=== PATIENT | female | born 1960 | race Caucasian/White ===

== ENCOUNTER 2017-02-22 02:31 | Inpatient (IN) ==
[2017-02-22] MEDS ORDERED: SODIUM CHLORIDE 0.9% 1,000 ML IV STA (04:07)
[2017-02-22] MEDS ORDERED: ALBUTEROL/IPRATROPIUM 3 ML NEB RESP TX STA (04:08)
[2017-02-22 04:22] LABS: Basophils % 0.3 % (0.0-0.8); Eosinophils # 0.1 10*3/uL (0.0-0.87); Eosinophils % 0.7 % (0.00-10.9); Hematocrit 44.5 VOL% (35.7-47.0); Hemoglobin 14.5 GM/DL (12.0-16.0); Immature Granulocytes % 0.3 %; Immature Granulocytes Absolute 0.03 #; Lymphocytes # 2.6 10*3/uL (1.4-4.0); Lymphocytes % 24.2 % (21.3-54.2); Mean Corpuscular HGB Conc 32.6 GM/DL (32-36); Mean Corpuscular Hemoglobin 31 PG (27-34); Mean Corpuscular Volume 95.1 FL (87-102); Mean Platelet Volume 10.8 FL (9.6-12.0); Monocytes # 0.7 10*3/uL (0.11-0.8); Monocytes % 6.7 % (1.7-12.7); Neutrophils # 7.3 10*3/uL (1.4-7.4); Neutrophils % 67.8 % (38.7-73.9); Platelet Count 204 T/CUMM (130-400); Red Blood Count 4.68 MC/CUMM (3.8-5.5); Red Cell Distribution Width 15.2 % (9.3-17.3); White Blood Count 10.8 T/CUMM (4-12)
[2017-02-22 04:30] LABS: PT Patient Result 10.9 SECS; Partial Thromboplastin Time 29.4 SECS (0-40)
[2017-02-22 04:43] LABS: Albumin 2.8 G/DL (3.4-5.0); Bilirubin,Total 0.5 MG/DL (0.2-1.0); Calcium 7.8 MG/DL (8.5-10.1); Osmolality,Calculated 268.5 MOS/KG (273-304); Potassium 3.8 MMOL/L (3.5-5.1)
[2017-02-22] MEDS ORDERED: NOREPINEPHRINE 4 MG/4 ML VIAL IV ONE ×2 (04:57→05:53)
[2017-02-22] MEDS: NOREPINEPHRINE 8 MG in SODIUM CHLORIDE 0.9% 242 ML IV SCH (05:15)
[2017-02-22] MEDS: SODIUM CHLORIDE 0.9% 1,000 ML IV SCH (08:00)
[2017-02-22] MEDS ORDERED: ONDANSETRON 4 MG/2 ML VIAL IV PRN (08:15)
[2017-02-22] MEDS ORDERED: MAGNESIUM SULF RIDER 4 GM in PREMIX 1 EACH IV PRN (08:15)
[2017-02-22] MEDS ORDERED: NICOTINE 21 MG/24 HR PATCH TRANSDERM PRN (08:15)
[2017-02-22] MEDS ORDERED: ALBUTEROL 2.5 MG/3 ML NEB RESP TX PRN (08:15)
[2017-02-22] MEDS ORDERED: ACETAMINOPHEN 325 MG TABLET PO PRN (08:15)
[2017-02-22] MEDS ORDERED: MORPHINE 2 MG/1 ML SYRINGE IV PRN (08:15)
[2017-02-22 08:58] LABS: Lactic Acid 1.1 MMOL/L (0.4-2.0)
[2017-02-22] MEDS ORDERED: CALCIUM GLUCONATE 1,000 MG in SODIUM CHLORIDE 0.9% 100 ML IV ONE (09:00)
[2017-02-22] MEDS ORDERED: PANTOPRAZOLE 40 MG VIAL IV SCH (09:00)
[2017-02-22 09:13] LABS: Magnesium 1.4 MG/DL (1.8-2.4); Risk Ratio 6.14
[2017-02-22 10:03] LABS: Allen Test Positive
[2017-02-22 10:04] LABS: ABG Base Excess 1.4 MMOL/L (-2.5-2.5); ABG HCO3 25.3 MMOL/L (20-26); ABG Oxygen Saturation 86.6 % (95-100); ABG PCO2 56.4 MM HG (35-48); ABG PH 7.319 (7.35-7.45); ABG PO2 57.4 MM HG (80-95); ABG TCO2 25.4 MMOL/L (23-27)
[2017-02-22] MEDS: DOCUSATE SODIUM 100 MG CAPSULE PO SCH ×2 (10:30→21:21)
[2017-02-22] MEDS: MAGNESIUM SULF RIDER 2 GM in PREMIX 1 EACH IV PRN ×2 (10:32→12:35)
[2017-02-22 16:46] LABS: Apearance,Urine Slightly Hazy (Clear); Bacteria,Urine Many /HPF (Few); Bilirubin,Urine Negative (Negative); Blood, Urine Small mg/dL (Negative); Glucose,Urine (UA) Negative (Negative); Ketones,Urine Negative (Negative); Mucus,Urine Occasional /LPF (Occasional); Nitrite,Urine Negative (Negative); Protein,Urine Negative; RBC,Urine 1 /HPF (0-4); Squamous Epithelial Cell,Urine Occasional /HPF (0-10); Urine Color Yellow (Yellow); Urine Specific Gravity 1.004 (1.001-1.035); Urine Urobilinogen < 2.0 EU/DL (0.2-1.0); WBC,Urine 3 /HPF (0-6)
[2017-02-22] MEDS: ATORVASTATIN 40 MG TABLET PO SCH (21:21)
[2017-02-23] MEDS: SODIUM CHLORIDE 0.9% 1,000 ML IV SCH (03:50)
[2017-02-23] MEDS ORDERED: ENOXAPARIN 100 MG/ML SYRINGE SUBCUT SCH (04:00)
[2017-02-23 05:00] LABS: Basophils % 0.4 % (0.0-0.8); Eosinophils # 0.1 10*3/uL (0.0-0.87); Eosinophils % 2.5 % (0.00-10.9); Hematocrit 43.7 VOL% (35.7-47.0); Hemoglobin 13.9 GM/DL (12.0-16.0); Immature Granulocytes % 0.5 %; Immature Granulocytes Absolute 0.03 #; Lymphocytes # 1.7 10*3/uL (1.4-4.0); Lymphocytes % 29.6 % (21.3-54.2); Mean Corpuscular HGB Conc 31.8 GM/DL (32-36); Mean Corpuscular Hemoglobin 31 PG (27-34); Mean Platelet Volume 11.5 FL (9.6-12.0); Monocytes # 0.5 10*3/uL (0.11-0.8); Monocytes % 8.4 % (1.7-12.7); Neutrophils # 3.3 10*3/uL (1.4-7.4); Neutrophils % 58.6 % (38.7-73.9); Platelet Count 198 T/CUMM (130-400); Red Blood Count 4.55 MC/CUMM (3.8-5.5); Red Cell Distribution Width 15.2 % (9.3-17.3); White Blood Count 5.6 T/CUMM (4-12)
[2017-02-23] MEDS: NOREPINEPHRINE 8 MG in SODIUM CHLORIDE 0.9% 242 ML IV SCH (05:15)
[2017-02-23 05:33] LABS: Calcium 8.2 MG/DL (8.5-10.1); Magnesium 2.6 MG/DL (1.8-2.4); Osmolality,Calculated 282.4 MOS/KG (273-304); Potassium 3.8 MMOL/L (3.5-5.1)
[2017-02-23] MEDS: PANTOPRAZOLE 40 MG TABLET PO SCH (09:19)
[2017-02-23] MEDS: ASPIRIN EC 325 MG TABLET PO SCH (09:19)
[2017-02-23] MEDS: DOCUSATE SODIUM 100 MG CAPSULE PO SCH ×2 (09:19→21:11)
[2017-02-23] MEDS: ATORVASTATIN 40 MG TABLET PO SCH (21:11)
[2017-02-23] MEDS: ENOXAPARIN 100 MG/ML SYRINGE SUBCUT SCH (21:14)
[2017-02-24] MEDS: SODIUM CHLORIDE 0.9% 1,000 ML IV SCH (02:23)
[2017-02-24 05:34] LABS: Basophils % 0.3 % (0.0-0.8); Eosinophils # 0.1 10*3/uL (0.0-0.87); Eosinophils % 3.8 % (0.00-10.9); Hematocrit 42.3 VOL% (35.7-47.0); Hemoglobin 13.4 GM/DL (12.0-16.0); Immature Granulocytes % 0.3 %; Immature Granulocytes Absolute 0.01 #; Lymphocytes # 1.5 10*3/uL (1.4-4.0); Lymphocytes % 40.3 % (21.3-54.2); Mean Corpuscular HGB Conc 31.7 GM/DL (32-36); Mean Corpuscular Hemoglobin 31 PG (27-34); Mean Corpuscular Volume 96.8 FL (87-102); Mean Platelet Volume 11.1 FL (9.6-12.0); Monocytes # 0.4 10*3/uL (0.11-0.8); Monocytes % 9.7 % (1.7-12.7); Neutrophils # 1.7 10*3/uL (1.4-7.4); Neutrophils % 45.6 % (38.7-73.9); Platelet Count 173 T/CUMM (130-400); Red Blood Count 4.37 MC/CUMM (3.8-5.5); Red Cell Distribution Width 14.7 % (9.3-17.3); White Blood Count 3.7 T/CUMM (4-12)
[2017-02-24 06:04] LABS: Calcium 8.6 MG/DL (8.5-10.1); Magnesium 1.7 MG/DL (1.8-2.4); Osmolality,Calculated 279.3 MOS/KG (273-304); Potassium 3.5 MMOL/L (3.5-5.1)
[2017-02-24] MEDS: ASPIRIN EC 325 MG TABLET PO SCH (08:41)
[2017-02-24] MEDS: PANTOPRAZOLE 40 MG TABLET PO SCH (08:42)
[2017-02-24] MEDS: ENOXAPARIN 100 MG/ML SYRINGE SUBCUT SCH (08:42)
[2017-02-24] MEDS: DOCUSATE SODIUM 100 MG CAPSULE PO SCH ×2 (08:42→22:52)
[2017-02-24] MEDS ORDERED: ALBUTEROL 2.5 MG/3 ML NEB RESP TX PRN (14:23)
[2017-02-24] MEDS ORDERED: ERGOCALCIFEROL 50,000 UNIT CAPSULE PO SCH (14:30)
[2017-02-24] MEDS ORDERED: CITALOPRAM 40 MG TABLET PO SCH (21:00)
[2017-02-24] MEDS ORDERED: VALSARTAN 160 MG TABLET PO SCH (21:00)
[2017-02-24] MEDS ORDERED: POTASSIUM CHLORIDE 20 MEQ TABLET PO SCH (21:00)
[2017-02-24] MEDS ORDERED: ATORVASTATIN 20 MG TABLET PO SCH (21:00)
[2017-02-24] MEDS ORDERED: amLODIPine 10 MG TABLET PO SCH (21:00)
[2017-02-25 06:11] LABS: Basophils % 0.3 % (0.0-0.8); Eosinophils # 0.1 10*3/uL (0.0-0.87); Eosinophils % 3.4 % (0.00-10.9); Hematocrit 43.8 VOL% (35.7-47.0); Hemoglobin 14.3 GM/DL (12.0-16.0); Immature Granulocytes % 0.5 %; Immature Granulocytes Absolute 0.02 #; Lymphocytes # 1.4 10*3/uL (1.4-4.0); Lymphocytes % 36.2 % (21.3-54.2); Mean Corpuscular HGB Conc 32.6 GM/DL (32-36); Mean Corpuscular Hemoglobin 31 PG (27-34); Mean Corpuscular Volume 94.6 FL (87-102); Mean Platelet Volume 10.6 FL (9.6-12.0); Monocytes # 0.4 10*3/uL (0.11-0.8); Monocytes % 9.9 % (1.7-12.7); Neutrophils # 1.9 10*3/uL (1.4-7.4); Neutrophils % 49.7 % (38.7-73.9); Platelet Count 175 T/CUMM (130-400); Red Blood Count 4.63 MC/CUMM (3.8-5.5); Red Cell Distribution Width 14.4 % (9.3-17.3); White Blood Count 3.8 T/CUMM (4-12)
[2017-02-25 06:40] LABS: Calcium 8.9 MG/DL (8.5-10.1); Magnesium 1.3 MG/DL (1.8-2.4); Osmolality,Calculated 280.1 MOS/KG (273-304); Potassium 3.3 MMOL/L (3.5-5.1)
[2017-02-25] MEDS: SODIUM CHLORIDE 0.9% 1,000 ML IV SCH ×2 (06:40→17:44)
[2017-02-25] MEDS: PANTOPRAZOLE 40 MG TABLET PO SCH (09:56)
[2017-02-25] MEDS: DOCUSATE SODIUM 100 MG CAPSULE PO SCH (09:56)
[2017-02-25] MEDS: ASPIRIN EC 325 MG TABLET PO SCH (09:56)
[2017-02-25] MEDS ORDERED: TISSUE ADHESIVE 1 EACH APPLICATOR TOP ONE (11:31)
[2017-02-25] MEDS ORDERED: PROPOFOL 200 MG/20 ML VIAL IV ONE (11:56)
[2017-02-25] MEDS ORDERED: fentaNYL 100 MCG/2 ML VIAL ONE (11:57)
[2017-02-25] MEDS ORDERED: MIDAZOLAM 2 MG/2 ML VIAL ONE (11:57)
[2017-02-25] MEDS ORDERED: ONDANSETRON 4 MG/2 ML VIAL ONE (11:57)
[2017-02-25 17:53] VITALS: BP 120/65
== END 2017-02-25 18:50 | disposition home or self-care (01) | DRG 981 ==
LOC: N.ED 02:31 → N.EDINP 05:33 → SUATTDRO 05:33 → N.CVR 06:30 → N.ICU 06:31 → N.TELEN 14:38 → N.4E 02-24 22:18
PROVIDERS: ADMIT Internal Medicine Infectious Disease; ATTEND Internal Medicine

== ENCOUNTER 2017-06-24 21:38 | Inpatient (IN) ==
[2017-06-25] MEDS ORDERED: ZALEPLON 5 MG CAPSULE PO PRN (00:22)
[2017-06-25] MEDS ORDERED: ONDANSETRON 4 MG/2 ML VIAL IV PRN (00:22)
[2017-06-25] MEDS ORDERED: guaiFENesin/CODEINE 5 ML LIQUID PO PRN (00:29)
[2017-06-25] MEDS ORDERED: ALBUTEROL 2.5 MG/3 ML NEB RESP TX PRN (00:30)
[2017-06-25] MEDS: ALBUTEROL/IPRATROPIUM 3 ML NEB RESP TX SCH ×4 (00:51→20:13)
[2017-06-25] MEDS: LEVOFLOXACIN INJ 500 MG in PREMIX 1 EACH IV SCH (01:30)
[2017-06-25 07:24] LABS: Basophils % 0.1 % (0.0-0.8); Hematocrit 44.4 VOL% (35.7-47.0); Hemoglobin 13.7 GM/DL (12.0-16.0); Immature Granulocytes % 1.3 %; Immature Granulocytes Absolute 0.11 #; Lymphocytes % 12.5 % (21.3-54.2); Mean Corpuscular HGB Conc 30.9 GM/DL (32-36); Mean Corpuscular Hemoglobin 31 PG (27-34); Mean Corpuscular Volume 100.9 FL (87-102); Mean Platelet Volume 10.8 FL (9.6-12.0); Monocytes # 0.3 10*3/uL (0.11-0.8); Monocytes % 4.2 % (1.7-12.7); NRBC # 0.02 10*3/uL; Neutrophils # 6.7 10*3/uL (1.4-7.4); Neutrophils % 81.9 % (38.7-73.9); Platelet Count 220 T/CUMM (130-400); Red Cell Distribution Width 15.8 % (9.3-17.3); White Blood Count 8.2 T/CUMM (4-12)
[2017-06-25 07:57] LABS: Albumin 2.8 G/DL (3.4-5.0); Calcium 8.3 MG/DL (8.5-10.1); Osmolality,Calculated 280.4 MOS/KG (273-304); Potassium 3.4 MMOL/L (3.5-5.1); Risk Ratio 4.03; Total Protein 7.1 G/DL (6.4-8.3)
[2017-06-25 08:03] LABS: Troponin I Only 0.547 NG/ML (0.00-0.045)
[2017-06-25 08:29] LABS: CKMB % 7.8 %
[2017-06-25 08:32] LABS: Troponin I Only 0.53 NG/ML (0.00-0.045)
[2017-06-25 08:40] LABS: ABG Base Excess 7.7 MMOL/L (-2.5-2.5); ABG HCO3 31.1 MMOL/L (20-26); ABG Oxygen Saturation 82.8 % (95-100); ABG PH 7.322 (7.35-7.45); ABG PO2 49.5 MM HG (80-95); ABG TCO2 32.7 MMOL/L (23-27)
[2017-06-25 08:52] LABS: ABG PCO2 72.1 MM HG (35-48)
[2017-06-25] MEDS: PANTOPRAZOLE 40 MG TABLET PO SCH (09:21)
[2017-06-25] MEDS: NICOTINE 21 MG/24 HR PATCH TRANSDERM SCH (09:21)
[2017-06-25] MEDS: ASPIRIN EC 81 MG TABLET PO SCH (09:22)
[2017-06-25] MEDS: ENOXAPARIN 40 MG/0.4 ML SYRINGE SUBCUT SCH (09:22)
[2017-06-25] MEDS: FUROSEMIDE 40 MG/4 ML VIAL IV SCH (09:24)
[2017-06-25] MEDS: BUDESONIDE/FORMOTEROL 160-4.5 INHALER 6 GM INH SCH ×2 (09:24→20:57)
[2017-06-25] MEDS: POTASSIUM CHLORIDE 20 MEQ TABLET PO PRN ×3 (11:16→18:04)
[2017-06-25 12:41] LABS: Troponin I Only 0.538 NG/ML (0.00-0.045)
[2017-06-25] MEDS: MONTELUKAST 10 MG TABLET PO SCH (18:04)
[2017-06-25] MEDS: CITALOPRAM 40 MG TABLET PO SCH (20:55)
[2017-06-25] MEDS: acetaZOLAMIDE 250 MG TABLET PO SCH (20:55)
[2017-06-25] MEDS: VALSARTAN 160 MG TABLET PO SCH (20:56)
[2017-06-25] MEDS: ATORVASTATIN 20 MG TABLET PO SCH (20:56)
[2017-06-25] MEDS: amLODIPine 10 MG TABLET PO SCH (20:56)
[2017-06-26] MEDS: LEVOFLOXACIN INJ 500 MG in PREMIX 1 EACH IV SCH (00:01)
[2017-06-26] MEDS: ALBUTEROL/IPRATROPIUM 3 ML NEB RESP TX SCH ×4 (00:36→19:54)
[2017-06-26 02:18] LABS: Basophils % 0.3 % (0.0-0.8); Eosinophils # 0.1 10*3/uL (0.0-0.87); Eosinophils % 0.5 % (0.00-10.9); Hematocrit 42.4 VOL% (35.7-47.0); Hemoglobin 13.1 GM/DL (12.0-16.0); Immature Granulocytes % 0.5 %; Immature Granulocytes Absolute 0.05 #; Lymphocytes # 2.4 10*3/uL (1.4-4.0); Lymphocytes % 22.3 % (21.3-54.2); Mean Corpuscular HGB Conc 30.9 GM/DL (32-36); Mean Corpuscular Hemoglobin 31 PG (27-34); Mean Corpuscular Volume 101.7 FL (87-102); Monocytes # 0.7 10*3/uL (0.11-0.8); Monocytes % 6.5 % (1.7-12.7); Neutrophils # 7.5 10*3/uL (1.4-7.4); Neutrophils % 69.9 % (38.7-73.9); Platelet Count 208 T/CUMM (130-400); Red Blood Count 4.17 MC/CUMM (3.8-5.5); Red Cell Distribution Width 15.9 % (9.3-17.3); White Blood Count 10.7 T/CUMM (4-12)
[2017-06-26] MEDS: POTASSIUM CHLORIDE 20 MEQ TABLET PO PRN ×6 (03:12→14:45)
[2017-06-26 04:11] LABS: ABG HCO3 33.3 MMOL/L (20-26); ABG Oxygen Saturation 81.8 % (95-100); ABG PH 7.336 (7.35-7.45); ABG PO2 49.1 MM HG (80-95); ABG TCO2 34.9 MMOL/L (23-27); Allen Test Positive
[2017-06-26 04:28] LABS: ABG PCO2 74.2 MM HG (35-48)
[2017-06-26] MEDS ORDERED: MAGNESIUM SULF RIDER 4 GM in PREMIX 1 EACH IV PRN (08:42)
[2017-06-26] MEDS: ENOXAPARIN 40 MG/0.4 ML SYRINGE SUBCUT SCH (09:07)
[2017-06-26] MEDS: acetaZOLAMIDE 250 MG TABLET PO SCH ×2 (09:07→20:01)
[2017-06-26] MEDS: MONTELUKAST 10 MG TABLET PO SCH (09:07)
[2017-06-26] MEDS: PANTOPRAZOLE 40 MG TABLET PO SCH (09:07)
[2017-06-26] MEDS: ASPIRIN EC 81 MG TABLET PO SCH (09:07)
[2017-06-26] MEDS: NICOTINE 21 MG/24 HR PATCH TRANSDERM SCH (09:08)
[2017-06-26] MEDS: FUROSEMIDE 40 MG/4 ML VIAL IV SCH (09:08)
[2017-06-26] MEDS: MAGNESIUM SULF RIDER 2 GM in PREMIX 1 EACH IV PRN ×2 (09:11→10:45)
[2017-06-26] MEDS: BUDESONIDE/FORMOTEROL 160-4.5 INHALER 6 GM INH SCH ×2 (09:13→20:01)
[2017-06-26] MEDS: POTASSIUM CHLORIDE 10 MEQ TABLET PO SCH ×2 (14:45→20:01)
[2017-06-26] MEDS: ATORVASTATIN 20 MG TABLET PO SCH (20:01)
[2017-06-26] MEDS: VALSARTAN 160 MG TABLET PO SCH (20:01)
[2017-06-26] MEDS: amLODIPine 10 MG TABLET PO SCH (20:01)
[2017-06-26] MEDS: CITALOPRAM 40 MG TABLET PO SCH (20:01)
[2017-06-27] MEDS: LEVOFLOXACIN INJ 500 MG in PREMIX 1 EACH IV SCH (00:04)
[2017-06-27] MEDS: ALBUTEROL/IPRATROPIUM 3 ML NEB RESP TX SCH ×4 (00:17→19:44)
[2017-06-27 04:13] LABS: ABG Base Excess 8.2 MMOL/L (-2.5-2.5); ABG HCO3 31.6 MMOL/L (20-26); ABG Oxygen Saturation 84.3 % (95-100); ABG PH 7.305 (7.35-7.45); ABG PO2 52.9 MM HG (80-95); ABG TCO2 33.9 MMOL/L (23-27); Allen Test Positive
[2017-06-27 04:17] LABS: ABG PCO2 77.6 MM HG (35-48)
[2017-06-27 06:05] LABS: Basophils % 0.3 % (0.0-0.8); Eosinophils # 0.2 10*3/uL (0.0-0.87); Eosinophils % 2.3 % (0.00-10.9); Hematocrit 45.8 VOL% (35.7-47.0); Hemoglobin 14.4 GM/DL (12.0-16.0); Immature Granulocytes % 0.5 %; Immature Granulocytes Absolute 0.04 #; Lymphocytes # 1.7 10*3/uL (1.4-4.0); Lymphocytes % 22.4 % (21.3-54.2); Mean Corpuscular HGB Conc 31.4 GM/DL (32-36); Mean Corpuscular Hemoglobin 31 PG (27-34); Mean Platelet Volume 10.8 FL (9.6-12.0); Monocytes # 0.5 10*3/uL (0.11-0.8); Monocytes % 6.8 % (1.7-12.7); Neutrophils # 5.1 10*3/uL (1.4-7.4); Neutrophils % 67.7 % (38.7-73.9); Platelet Count 223 T/CUMM (130-400); Red Blood Count 4.58 MC/CUMM (3.8-5.5); Red Cell Distribution Width 16.2 % (9.3-17.3); White Blood Count 7.6 T/CUMM (4-12)
[2017-06-27 06:29] LABS: Calcium 8.7 MG/DL (8.5-10.1); Osmolality,Calculated 281.4 MOS/KG (273-304); Potassium 3.9 MMOL/L (3.5-5.1)
[2017-06-27] MEDS: NICOTINE 21 MG/24 HR PATCH TRANSDERM SCH (09:33)
[2017-06-27] MEDS: MONTELUKAST 10 MG TABLET PO SCH (09:34)
[2017-06-27] MEDS: acetaZOLAMIDE 250 MG TABLET PO SCH ×2 (09:34→20:21)
[2017-06-27] MEDS: ASPIRIN EC 81 MG TABLET PO SCH (09:34)
[2017-06-27] MEDS: POTASSIUM CHLORIDE 10 MEQ TABLET PO SCH ×2 (09:34→20:21)
[2017-06-27] MEDS: FUROSEMIDE 40 MG/4 ML VIAL IV SCH (09:34)
[2017-06-27] MEDS: PANTOPRAZOLE 40 MG TABLET PO SCH (09:34)
[2017-06-27] MEDS: ENOXAPARIN 40 MG/0.4 ML SYRINGE SUBCUT SCH (09:35)
[2017-06-27] MEDS: BUDESONIDE/FORMOTEROL 160-4.5 INHALER 6 GM INH SCH ×2 (09:35→20:21)
[2017-06-27 11:39] LABS: ABG Base Excess 7.4 MMOL/L (-2.5-2.5); ABG HCO3 30.7 MMOL/L (20-26); ABG PCO2 68.2 MM HG (35-48); ABG PH 7.339 (7.35-7.45); ABG PO2 46.6 MM HG (80-95); ABG TCO2 31.5 MMOL/L (23-27)
[2017-06-27] MEDS: VALSARTAN 160 MG TABLET PO SCH (20:21)
[2017-06-27] MEDS: ATORVASTATIN 20 MG TABLET PO SCH (20:21)
[2017-06-27] MEDS: amLODIPine 10 MG TABLET PO SCH (20:21)
[2017-06-27] MEDS: CITALOPRAM 40 MG TABLET PO SCH (20:21)
[2017-06-28] MEDS: LEVOFLOXACIN INJ 500 MG in PREMIX 1 EACH IV SCH
[2017-06-28] MEDS: ALBUTEROL/IPRATROPIUM 3 ML NEB RESP TX SCH ×2 (00:26→07:02)
[2017-06-28 04:57] LABS: ABG Base Excess 6.8 MMOL/L (-2.5-2.5); ABG HCO3 30.2 MMOL/L (20-26); ABG Oxygen Saturation 85.4 % (95-100); ABG PCO2 57.1 MM HG (35-48); ABG PH 7.384 (7.35-7.45); ABG PO2 50.4 MM HG (80-95); ABG TCO2 29.2 MMOL/L (23-27); Allen Test Positive; Pt O2 Delivery Device Room Air
[2017-06-28 05:07] LABS: Basophils % 0.4 % (0.0-0.8); Eosinophils # 0.2 10*3/uL (0.0-0.87); Eosinophils % 2.9 % (0.00-10.9); Hematocrit 48.8 VOL% (35.7-47.0); Immature Granulocytes % 0.3 %; Immature Granulocytes Absolute 0.02 #; Lymphocytes # 1.9 10*3/uL (1.4-4.0); Lymphocytes % 27.4 % (21.3-54.2); Mean Corpuscular HGB Conc 30.7 GM/DL (32-36); Mean Corpuscular Hemoglobin 31 PG (27-34); Mean Corpuscular Volume 101.5 FL (87-102); Mean Platelet Volume 10.9 FL (9.6-12.0); Monocytes # 0.4 10*3/uL (0.11-0.8); Monocytes % 5.9 % (1.7-12.7); Neutrophils # 4.4 10*3/uL (1.4-7.4); Neutrophils % 63.1 % (38.7-73.9); Platelet Count 237 T/CUMM (130-400); Red Blood Count 4.81 MC/CUMM (3.8-5.5); Red Cell Distribution Width 15.8 % (9.3-17.3); White Blood Count 6.9 T/CUMM (4-12)
[2017-06-28 05:33] LABS: Osmolality,Calculated 280.5 MOS/KG (273-304); Potassium 4.5 MMOL/L (3.5-5.1)
[2017-06-28 07:50] VITALS: BP 121/73
[2017-06-28] MEDS: NICOTINE 21 MG/24 HR PATCH TRANSDERM SCH (09:35)
[2017-06-28] MEDS: FUROSEMIDE 40 MG/4 ML VIAL IV SCH (09:36)
[2017-06-28] MEDS: MONTELUKAST 10 MG TABLET PO SCH (09:36)
[2017-06-28] MEDS: POTASSIUM CHLORIDE 10 MEQ TABLET PO SCH (09:36)
[2017-06-28] MEDS: acetaZOLAMIDE 250 MG TABLET PO SCH (09:36)
[2017-06-28] MEDS: BUDESONIDE/FORMOTEROL 160-4.5 INHALER 6 GM INH SCH (09:38)
[2017-06-28] MEDS: PANTOPRAZOLE 40 MG TABLET PO SCH (09:38)
[2017-06-28] MEDS: ASPIRIN EC 81 MG TABLET PO SCH (09:38)
[2017-06-28] MEDS: ENOXAPARIN 40 MG/0.4 ML SYRINGE SUBCUT SCH (09:40)
== END 2017-06-28 12:30 | disposition home or self-care (01) | DRG 292 ==
LOC: INTOOBSV 23:14 → SUATTDRO 23:14 → N.5E 23:14 → SUATTDRO 06-25 14:41
PROVIDERS: ADMIT Internal Medicine; ATTEND Family Medicine